=== PATIENT | female | born 1975 | race Caucasian/White ===

== ENCOUNTER 2016-09-09 05:35 | Inpatient (IN) | payer MEDICARE ==
--- NOTE | ~2016-09-09 | CO ---
Unit #: [id number] #: [id number] Patient: TISAH WALLIS [id number] [place] [address] [id number] MR#: [id number] NAME: TISHA WALLIS ROOM: 63 Age: 41 Sex: F Admission Date: 09/09/2016 : 1975 Attending Physician: Briseyda Aguilar M.D. Consultation Date: 09/11/2016 CONSULTATION REPORT SUBJECTIVE Tisha had an increased WBC at time of admission. She had no complaints of sore throat, cough, or other signs or symptoms of infection. She has had no recorded increased temperatures. PLAN Plan will be to recheck the WBC and proceed from there. Dictated by... Marla Howard P.A.-C. for Charlene Sotelo/rome TD: 09/12/2016 18:59 JOB #: [id number] CONSULTATION REPORT Page 1 of 1 X Marla Howard CONSULTATION REPORT
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
--- NOTE | ~2016-09-09 | DS ---
Unit #: [id number] #: [id number] [facility] [id number] [facility] [address] [place] [address] [id number] I MR#: [id number] NAME: MILTON GARCIA. ROOM: [facility] Age: 41 Sex: F Admission Date: 09/09/2016 : 1975 Discharge Date: Attending Physician: Briseyda Aguilar M.D. DISCHARGE SUMMARY IDENTIFYING DATA Ms. Garcia is a 41-year-old , disabled, white female, who was self-referred to the hospital on a voluntary basis. DISCHARGE DIAGNOSES Psychiatric: Bipolar disorder, most recent episode depressed, recurrent, moderate, with psychosis. Medical: Asthma. Stressors: Moderate psychosocial stressors. HISTORY OF PRESENT ILLNESS Please see initial psychiatric evaluation for details. PAST PSYCHIATRIC HISTORY Please see initial psychiatric evaluation for details. PAST MEDICAL HISTORY Please see initial psychiatric evaluation for details. HOSPITAL COURSE The patient was admitted to the adult psychiatric unit at [facility] and was oriented to the hospital environment. Routine p.r.n. medications were initiated, and she was started back on her home medications and her lithium and Wellbutrin were maintained; however, Risperdal was added as the patient was exhibiting some acute psychosis, agitation, aggression, hostility, but was taking the medications regularly and Risperdal was increased to 1 mg b.i.d. with good tolerability and therapeutic response. Followed by which, it was decided that she will be discharged home and will continue treatment on an outpatient basis. DISCHARGE MEDICATIONS Wellbutrin XL 150 mg in the morning for depression, lithium 900 mg a day for bipolar, Risperdal 1 mg b.i.d. for bipolar. DISCHARGE CONDITION Stable. PROGNOSIS Fair. Dictated by... Briseyda Aguilar M.D. Unit #: [id number] #: [id number] Patient: MILTON GARCIA IAA/modl TD: 09/15/2016 08:39 JOB #: [id number] DISCHARGE SUMMARY Page 1 of 1 X Briseyda Aguilar MD X DISCHARGE SUMMARY
--- NOTE | ~2016-09-09 | PN ---
Unit #: [id number] #: [id number] Patient: MILTON GARCIA [id number] [facility] [address] [place] [address] [id number] MR#: [id number] NAME: MILTON GARCIA. ROOM: P263 Age: 41 Sex: F Admission Date: 09/09/2016 : 1975 Attending Physician: Briseyda Aguilar M.D. Admitting Physician: Briseyda Aguilar M.D. Primary Care Physician: Primary Care Physician Harriet RIZVI NOTES DATE 09/14/2016 DISCUSSION Ms. Garcia is a 41-year-old white female with mood disorder and psychosis who was seen today and chart was reviewed and case was discussed with the staff. She has been anxious, withdrawn and rather seclusive to herself. Meanwhile, she has been cooperative with treatment recommendations and has been taking the medications and tolerating them fairly well with no reported side effects. MENTAL STATUS EXAMINATION Middle-aged white female who was casually dressed with fair personal hygiene, appears to be in no acute distress or discomfort. She was awake and alert with impaired attention and concentration. Her mood was anxious with congruent affect. She denies any suicidal or homicidal ideations. Her insight and judgement remains slightly impaired. TREATMENT PLAN 1. We will continue her on her current medications and treatment protocol. We will monitor her response to the medication and make further adjustments as needed. 2. We will continue to follow up. Dictated by... Charlene Horn/darien TD: 09/14/2016 23:16 JOB #: [id number] Unit #: [id number] #: [id number] Patient: MILTON GARCIA HIGINIO PROGRESS NOTES Page 1 of 1 X Briseyda Aguilar MD PROGRESS NOTE
--- NOTE | ~2016-09-09 | EKG ---
PATIENT: MILTON WALLIS UNIT #: [id number] Ventricular Rate: 75 BPM Atrial Rate: 75 BPM P-R Interval: 162 ms QRS Duration: 168 ms Q-T Interval: 446 ms QTC Calculation(Bezet): 498 ms P [place]: 31 degrees Calculated R [place]: 3 degrees Calculated T [place]: 61 degrees Diagnosis Line: Sinus rhythm Diagnosis Line: Left bundle branch block Diagnosis Line: Abnormal ECG Diagnosis Line: No previous ECGs available Diagnosis Line: Confirmed by GERI WALTERS MD ([id number]) on 09/13/2016 Diagnosis Line: 11:04:50 PM INTERPRETING MD: SELENA BOUDREAUX
--- NOTE | ~2016-09-09 | PN ---
Unit #: [id number] #: [id number] Patient: MILTON GARCIA [id number] [facility] [address] [place] [address] [id number] MR#: [id number] NAME: MILTON GARCIA. ROOM: [facility] Age: 41 Sex: F Admission Date: 09/09/2016 : 1975 Attending Physician: Briseyad Aguilar M.D. Admitting Physician: Charlene Horn PROGRESS NOTES DATE OF SERVICE: 09/11/2016 SUBJECTIVE Ms. Garcia is a 41-year-old white female with mood disorder, who was seen today and chart was reviewed, and case was discussed with the staff. She has been anxious, withdrawn, and rather seclusive to herself and has been having difficulty to carry any meaningful conversation. Meanwhile, she has been taking medications and tolerating them fairly well with no reported side effects. MENTAL STATUS EXAMINATION Middle-aged white female who was casually dressed with fair personal hygiene, appears to be in no acute distress or discomfort. She was awake and alert on interaction with intact orientation. Her mood was anxious and depressed with a congruent affect. Her speech was slow and goal directed. She reports having suicidal ideation, but denies any homicidal ideations. Her insight and judgment remain slightly impaired. TREATMENT PLAN 1. We will continue on her current medications and treatment protocol. We will monitor her response to medication and make further adjustments as needed. 2. We will continue to follow up. Dictated by... Charlene Hron/rome TD: 09/12/2016 13:18 JOB #: [id number] Unit #: [id number] #: [id number] Patient: MILTON GARCIA MARY ANNFABIANA PROGRESS NOTES Page 1 of 1 X Briseyda Aguilar MD PROGRESS NOTE
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
--- NOTE | ~2016-09-09 | PN ---
Unit #: [id number] #: [id number] Patient: MILTON GARCIA [id number] [facility] [address] [place] [address] [id number] MR#: [id number] NAME: MILTON GARCIA. ROOM: 63 Age: 41 Sex: F Admission Date: 09/09/2016 : 1975 Attending Physician: Briseyda Aguilar M.D. Admitting Physician: Briseyda Aguilar M.D. Primary Care Physician: Primary Care Physician Harriet RIZVI NOTES DATE September 10, 2016 DISCUSSION Ms. Garcia is a 41-year-old white female, who was seen today and chart was reviewed and the case was discussed with the staff. The patient has been anxious, withdrawn, but has not shown any agitation, irritability, and has been cooperative with the treatment recommendations and she has been taking the medications and tolerating them fairly well with no reported side effects. MENTAL STATUS EXAMINATION Middle-aged white female, who was casually dressed with fair personal hygiene and appears to be in no acute distress or discomfort. The patient was awake and alert with intact orientation. Her mood was anxious and depressed with a congruent affect. Her speech is slow and restricted in content. Her thought processes are disorganized with some looseness of associations. Her insight and judgment remain significantly impaired. TREATMENT PLAN 1. We will continue her on her current medications and treatment protocol, and will monitor her response to the medications, and make further adjustments as needed. 2. We will continue to followup. Dictated by... Charlene Horn/cecelia TD: 09/13/2016 11:39 JOB #: [id number] Unit #: [id number] #: [id number] Patient: MILTON GARCIA HIGINIO PROGRESS NOTES Page 1 of 1 X Briseyda Aguilar MD PROGRESS NOTE
--- NOTE | ~2016-09-09 | EKG ---
PATIENT: MILTON WALLIS UNIT #: [id number] Ventricular Rate: 73 BPM Atrial Rate: 73 BPM P-R Interval: 134 ms QRS Duration: 168 ms Q-T Interval: 442 ms QTC Calculation(Bezet): 486 ms P [place]: 21 degrees Calculated R [place]: 5 degrees Calculated T [place]: 35 degrees Diagnosis Line: Normal sinus rhythm Diagnosis Line: Left bundle branch block Diagnosis Line: Abnormal ECG Diagnosis Line: When compared with ECG of 12-SEP-2016 00:04, Diagnosis Line: (unconfirmed) Diagnosis Line: Fusion complexes are no longer Present Diagnosis Line: Premature ventricular complexes are no longer Diagnosis Line: Present Diagnosis Line: Premature supraventricular complexes are no longer Diagnosis Line: Present Diagnosis Line: Confirmed by GERI WALTERS MD ([id number]) on 09/13/2016 Diagnosis Line: 11:05:15 PM INTERPRETING MD: SELENA BOUDREAUX
--- NOTE | ~2016-09-09 | PN ---
Unit #: [id number] #: [id number] Patient: MILTON GARCIA [id number] [facility] [address] [place] [address] [id number] MR#: [id number] NAME: MILTON GARCIA. ROOM: P263 Age: 41 Sex: F Admission Date: 09/09/2016 : 1975 Attending Physician: Briseyda Aguilar M.D. Admitting Physician: Briseyda Aguilar M.D. Primary Care Physician: Primary Care Physician Harriet RIZVI NOTES DATE OF SERVICE 09/13/2016 DISCUSSION Ms. Garcia is a 41-year-old white female who was seen today. Chart was reviewed and case was discussed with the staff. She has been anxious, withdrawn, disorganized, exhibiting some persistent paranoia, although she has been taking the medications and tolerating them fairly well with no reported side effects. MENTAL STATUS EXAMINATION Middle-aged white female who is casually dressed with fair personal hygiene, appears to be in no acute distress or discomfort. She was awake and alert with impaired attention and concentration. Her mood is anxious with congruent affect. Speech is slow and restricted in content. Her thought processes were disorganized with some looseness of associations. Her insight and judgment remain significantly impaired. TREATMENT PLAN 1. We will continue her on her current medications and treatment protocol. We will monitor her response to the medications and make further adjustments as needed. 2. We will continue to follow up. Dictated by... Briseyda Aguilar M.D. IAA/bzg TD: 09/14/2016 10:30 JOB #: [id number] Unit #: [id number] #: [id number] Patient: MILTON GARCIA HIGINIO PROGRESS NOTES Page 1 of 1 X Briseyda Aguilar MD PROGRESS NOTE
--- NOTE | ~2016-09-09 | HP ---
Unit #: [id number] #: [id number] Patient: TISHA WALLIS [id number] [place] [address] [id number] MR#: [id number] NAME: TISHA WALLIS. ROOM: P257 Age: 41 Sex: F Admission Date: 09/09/2016 : 1975 Attending Physician: Briseyda Aguilar M.D. Admitting Physician: Briseyda Aguilar M.D. Primary Care Physician: Primary Care Physician No HISTORY AND PHYSICAL HISTORY OF PRESENT ILLNESS Tisha is a 41 year old admitted to [address] [place] [address] with psychotic behavior. She is a poor historian so her history is taken from her chart. PAST MEDICAL HISTORY 1. History of migraines. 2. Asthma. PAST SURGICAL HISTORY Nothing reported. ALLERGIES No known drug allergies. SOCIAL HISTORY Smokes 1/2 pack per day. Drinks alcohol on occasion. Denies illicit drug use. FAMILY HISTORY Medically noncontributory. REVIEW OF SYSTEMS She does not answer questions appropriately. There were no reports of nausea, vomiting or diarrhea. She has had no cough or increased temperature. CURRENT MEDICATIONS 1. [place] 300 mg q.a.m., 600 mg q.h.s. 2. Risperdal 0.5 mg b.i.d. 3. Toprol XL 25 mg daily. 4. Zyban SR 150 mg daily. 5. Vistaril p.r.n. 6. Desyrel p.r.n. 7. Milk of Magnesia p.r.n. 8. Maalox p.r.n. 9. Tylenol p.r.n. 10. Lioresal 10 mg t.i.d. p.r.n. 11. Proventil inhaler p.r.n. PHYSICAL EXAMINATION GENERAL: Alert, appearing much older than her stated age of 41, in no apparent distress. VITAL SIGNS: Blood pressure 124/62, heart rate 80, respirations 16, Unit #: [id number] #: [id number] Patient: TISHA WALLIS temperature 98.6. WEIGHT: 162. HEIGHT: 5 feet 5 inches. SKIN: Warm and dry without rash or lesion. HEENT: Normocephalic. TMs not viewed. Oral and nasal passages clear. Conjunctivae clear. PERRLA. EOMs intact. NECK: Supple without lymphadenopathy or thyromegaly. HEART: Regular rate and rhythm without murmur. LUNGS: Clear. ABDOMEN: Soft, nontender. : Not done. EXTREMITIES: No evidence of cyanosis, clubbing or edema. Moves all without focal deficit. NEUROLOGICAL: Unable to complete extended exam. She does move all extremities without focal deficit. Hand inseamer is equal and gait is normal. IMPRESSION Psychiatric admission. RECOMMENDATIONS PSYCHIATRIC: Per psychiatrist. MEDICAL: See no contraindications to participate in facility's activities. MEDICAL PROGNOSIS Good. MEDICAL CONDITION Stable. Dictated by... Marla Howard P.A.-C. for Charlene Sotelo/qian TD: 09/10/2016 18:42 JOB #: [id number] HISTORY AND PHYSICAL Page 1 of 1 X Marla Howard X HISTORY AND PHYSICAL
[2016-09-10 12:53] LABS: BASOPHIL# 0.1 X10e3 (0-0.3); BASOPHIL% 0.4 % (0-2.5); EOSINOPHIL# 0.4 X10e3 (0-0.7); EOSINOPHIL% 2.5 % (0.0-7.0); HEMATOCRIT 40.6 % (35.0-45.0); HEMOGLOBIN 13.3 gm/dL (12.0-16.0); LYMPHOCYTE# 4.7 X10e3 (1.0-3.5); LYMPHOCYTE% 33.4 % (17.0-45.0); MEAN CELL VOLUME 87.8 FL (83-96); MEAN CORPUSCULAR HEMOGLOBIN 28.9 PG (28-34); MEAN CORPUSCULAR HGB CONC 32.9 g/dL (30-36); MEAN PLATELET VOLUME 10.5 FL (6.5-11.5); MONOCYTE% 7.2 % (3.0-12.0); NEUTROPHIL# 7.9 X10e3 (1.5-7.1); NEUTROPHIL% 56.5 % (40-75); PLATELET COUNT 255 X10e3 (140-420); RED BLOOD COUNT 4.63 X10e (3.90-5.30); RED CELL DISTRIBUTION WIDTH 14.2 % (11.0-15.5)
[2016-09-10 12:57] LABS: DIFF IND NO
[2016-09-10 13:06] LABS: ALBUMIN SERUM 4.6 g/dL (3.5-5.0); BUN/CREATININE RATIO 17.14; CALCIUM SERUM 9.8 mg/dL (8.4-10.2); CREATININE SERUM 0.7 mg/dL (0.6-1.4); GLOM FILT RATE Estimated 106.1 mL/min (>60); POTASSIUM 4.1 mmol/L (3.5-5.1); PROTEIN TOTAL SERUM 7.5 g/dL (6.0-8.3)
[2016-09-10 13:15] LABS: THYROID STIMULATING HORMONE 2.08 uIU/ml (0.34-5.60)
[2016-09-10 13:24] LABS: FREE THYROXIN (T4) 0.78 ng/dL (0.58-1.64)
[2016-09-11 15:52] LABS: URINE APPEARANCE CLOUDY; URINE BLOOD 3+ (NEG); URINE COLOR RED; URINE GLUCOSE NEG (NEG); URINE KETONE NEG (NEG); URINE LEUKOCYTE ESTERASE 3+ (NEG); URINE NITRATE NEG (NEG); URINE PROTEIN 2+ (NEG); URINE SPECIFIC GRAVITY 1.022 (1.003-1.035); URINE UROBILINOGEN 0.2 MG/DL (NEG)
[2016-09-11 15:55] LABS: URBCS1 AUWI INNUM /[HPF] (0-2); URINE BACTERIA AUWI NEG (NEGATIVE); URINE SQUAMOUS EPITHELIAL CELL FEW /[HPF]; UWBCS1 AUWI 100-200 (0-5)
[2016-09-11 15:58] LABS: U HYALINE CASTS AUWI 0-2 /[LPF]; URINE BILIRUBIN NEG (NEG)
[2016-09-11 16:08] LABS: AMPHETAMINE NEG (NEG); BARBITURATES NEG (NEG); BENZODIAZEPINES NEG (NEG); COCAINE NEG (NEG); MARIJUANA NEG (NEG); OPIATES NEG (NEG); TRICYCLIC ANTIDEPRESSANTS NEG (NEG); U METHADONE NEG (NEG)
[2016-09-13 09:29] LABS: BASOPHIL% 0.2 % (0-2.5); EOSINOPHIL# 0.4 X10e3 (0-0.7); EOSINOPHIL% 3.1 % (0.0-7.0); HEMATOCRIT 40.8 % (35.0-45.0); HEMOGLOBIN 13.4 gm/dL (12.0-16.0); LYMPHOCYTE# 4.8 X10e3 (1.0-3.5); LYMPHOCYTE% 42.1 % (17.0-45.0); MEAN CELL VOLUME 87.8 FL (83-96); MEAN CORPUSCULAR HEMOGLOBIN 28.8 PG (28-34); MEAN CORPUSCULAR HGB CONC 32.8 g/dL (30-36); MEAN PLATELET VOLUME 10.1 FL (6.5-11.5); MONOCYTE# 0.7 X10e3 (0-1.0); MONOCYTE% 6.1 % (3.0-12.0); NEUTROPHIL# 5.5 X10e3 (1.5-7.1); NEUTROPHIL% 48.5 % (40-75); PLATELET COUNT 232 X10e3 (140-420); RED BLOOD COUNT 4.65 X10e (3.90-5.30); WHITE BLOOD COUNT 11.3 X10e3 (4.0-10.5)
[2016-09-13 09:33] LABS: DIFF IND NO
== END 2016-09-15 10:45 | disposition home or self-care (01) | DRG 885 ==
LOC: P1E 05:35 → P2L 19:07
PROVIDERS: Psychiatry & Neurology Psychiatry
DX: F31.5 Bipolar disorder, current episode depressed, severe, with psychotic features (principal); F17.210 Nicotine dependence, cigarettes, uncomplicated; J45.909 Unspecified asthma, uncomplicated; Z59.0 Homelessness
CPT/HCPCS: 80053; 80178; 80307; 81003; 84439; 84443; 85025; 86592; 93005; J2060; J3486